=== PATIENT | female | born 1945 | race Caucasian/White ===

== ENCOUNTER → 2023-11-10 15:00 | Outpatient (REF) | payer MEDICARE, SELFPAY | LOC: PAVMRI 15:00 | PROVIDERS: ATTENDING PHYSICIAN Orthopaedic Surgery; FAMILY PHYSICIAN Internal Medicine | DX: M25.521 Pain in right elbow (principal); M77.8 Other enthesopathies, not elsewhere classified | CPT/HCPCS: 73221 ==

== ENCOUNTER → 2023-12-03 10:51 | Outpatient (REF) | payer MEDICARE, SELFPAY | LOC: RCS 10:51 | PROVIDERS: ATTENDING PHYSICIAN Internal Medicine Critical Care Medicine; FAMILY PHYSICIAN Internal Medicine; REFERRING PHYSICIAN Internal Medicine Cardiovascular Disease | DX: R06.09 Other forms of dyspnea (principal) | CPT/HCPCS: 93306 ==